=== PATIENT | female | born 1975 | race Caucasian/White ===

== ENCOUNTER 2022-12-14 13:57 | Outpatient (AMB) | payer OTHER, SELFPAY ==
[2022-12-14 13:59] VITALS: BP 122/80; PULSE 88; O2SAT 99; BMI 26.8
--- NOTE | 2022-12-14 13:59 | MHC.PC.OV ---
Vital Signs 12/14/22 13:59 Height 5 ft 6 in Weight 166 lb BMI 26.8 BP 122/80 Blood Pressure Location Lt brachial Position Sitting Pulse 88 Pulse Source Pulse Oximeter Temp Source Skin Pulse Oximetry (%) 99 Oxygen Delivery Method Room Air Intake Visit Reasons: Annual Exam Intake Note: Patient is here today for a physical. Hide Dropper Required: No Allergies No Known Allergies Allergy (Verified 12/14/22 14:08) Medication List - Last Reconciled 12/14/22 by CAROLINE Dill No Known Home Meds Tobacco use date assessed: 12/14/22 Dental Screening Dental Screen Date: 12/14/22 Did you have a dental visit in the last 12 months?: Yes Did you have a dental problem in the last 6 months where you did not have access to dental care?: No Was dental information given to patient?: Patient has dentist HPI Annual Exam HPI Details Patient is a 47-year-old female who presents today for physical exam. Patient of Dr. Perez. Medical history significant for hypertriglyceridemia. Today we discussed patient's need for cervical cancer screening, colon cancer screening, mammogram, and routine blood work. Patient reports that she possibly going through perimenopause, reports intermittent hot flashes, reports last menstruation last month although she did not have menstruation for couple months in the past. No shortness of breath or chest pain. Up-to-date with eye and dental exams. Up-to-date with tetanus vaccine. [facility] Medical History Asthma Hepatitis B Hypertriglyceridemia Obesity (BMI 30-39.9) Sacral fracture Vitamin D deficiency Surgical History No pertinent past surgical history Family History Father ALS (amyotrophic lateral sclerosis) Alcohol abuse Mother No problems noted. Maternal Grandmother Breast cancer Maternal Grandfather S/P CABG x 1 Paternal Grandmother Colon cancer Maternal Aunt Skin cancer Sister No problems noted. Sister No problems noted. Social History Housing: House Alcohol intake: current Patient Tobacco Use Status: Former Tobacco user Tobacco use type: Cigarette Years Smoked: quit 2011 e-Cigarette/Vaping Use: Never Used Second Hand Smoke Exposure: No Current occupational status: employed Cognitive needs: No Hearing needs: No Vision needs: No Questionnaire PHQ-9 Over the last 2 weeks, how often have you been bothered by any of the following problems? 1. Little interest or pleasure in doing things: not at all 2. Feeling down, depressed, or hopeless: not at all 3. Trouble falling or staying asleep, or sleeping too much: not at all 4. Feeling tired or having little energy: not at all 5. Poor appetite or overeating: not at all 6. Feeling bad about yourself - or that you are a failure or have let yourself or your family down: not at all 7. Trouble concentrating on things, such as reading the newspaper or watching television: not at all 8. Moving or speaking so slowly that other people could have noticed. Or the opposite - being so fidgety or restless that you have been moving around a lot more than usual: not at all 9. Thoughts that you would be better off or of hurting yourself in some way: not at all Total score: 0 Depression Screening Interpretation: Negative 28444 - PHQ-9 Billing: Yes Source: Developed by Drs. Ralph Gonsalves, Jenna Samuel, Jb Alex and colleagues, with an educational elbert from [email or web address] Thrive Questionnaire Date Thrive assessed: 12/14/22 I am a: Patient What is your living situation today?: I have a steady place to live Within the past 12 months, did the food you bought not last and you didn't have the money to get more?: Never true Within the past 12 months, did you worry whether your food would run out before you got money to buy more?: Never true Do you have trouble paying for medicines?: No Do you have trouble getting transportation to medical appointments?: No Do you have trouble paying your heating and electricity bill?: No Do you have trouble taking care of your child, family member or friend?: No Do you have trouble with day-to-day activities such as bathing, preparing meals, shopping, managing finances, etc.?: No Are you currently unemployed and looking for a job?: No Are you interested in more education?: No Currently or been in a relationship where the following occur: no concerns reported AUDIT C Alcohol Use Questionnaire (AUDIT-C) 1. How often do you have a drink containing alcohol?: 2-3 times a week 2. How many drinks containing alcohol do you have on a typical day when you are drinking?: 1 or 2 3. How often do you have six or more drinks on one occasion?: Never Total Score: 3 Score Reviewed/Action Taken: No VINOD-7 AMB Questionnaire VINOD-7 Date VINOD - 7 assessed: 12/14/22 Feeling nervous, anxious, or on edge: 0 = Not at all Not being able to stop or control worryin = Not at all Worrying too much about different things: 0 = Not at all Trouble relaxin = Not at all Being so restless that it is hard to sit still: 0 = Not at all Becoming easily annoyed or irritable: 0 = Not at all Feeling afraid as if something awful might happen: 0 = Not at all Total VINOD-7 score (0-4 normal; 5-9 mild; 10-14 moderate; 15-21 severe): 0 Source: Developed by Drs. Ralph Gonsalves, Jenna Samuel, Jb Alex and colleagues, with an educational elbert from [email or web address] VINOD-7 Assessment Billing VINOD-7 Assessment Tool: VINOD-7 Assessment 81815 Review of Systems Const Denies body aches, Denies chills, Denies fever(s) and Denies headache(s) Eyes Denies change in vision ENT Denies dizziness, Denies otalgia, Denies headache(s), Denies nasal discharge, Denies sinus pain and Denies sore throat Card Denies chest pain, Denies edema, Denies lightheadedness and Denies dyspnea Resp Denies cough, Denies dyspnea and Denies wheezing GI Denies abdominal pain, Denies constipation, Denies diarrhea, Denies nausea and Denies vomiting Denies dysuria Musc Denies myalgias Skin/Breast Denies rash Neuro Denies dizziness and Denies headache(s) Aller/Immun Denies wheezing Physical exam (Primary Care) Vital Signs: Last Vital Signs Pulse 88 12/14/22 13:59 BP 122/80 12/14/22 13:59 Pulse Ox 99 12/14/22 13:59 Oxygen Delivery Method Room Air 12/14/22 13:59 BMI result Body Mass Index 26.8 Tobacco/Smoking Status: Tobacco use Status Tobacco use date assessed 12/14/22 12/14/22 14:06 Patient Tobacco Use Status Former Tobacco user 12/14/22 14:06 Tobacco use type Cigarette 12/14/22 14:06 e-Cigarette/Vaping Use Never Used 12/14/22 14:06 PHQ-9: PHQ-9 Score PHQ-9: Total score 0 12/14/22 14:06 Depression Screening Interpretation: Negative Thrive Assessment: Date of Thrive Assessment Date Thrive assessed 12/14/22 12/14/22 14:06 Currently or been in a relationship where the following occur: no concerns reported Const General: cooperative and no acute distress Orientation/consciousness: patient oriented x3 HENMT Head: Yes normocephalic and Yes atraumatic Ears: TM's normal bilaterally Face and sinus: Yes sinuses nontender Mouth: oropharynx normal and moist mucous membranes Throat: Yes posterior oropharynx normal Eyes General: appearance normal, both eyes and all related structures Pupils: Equal, round and reactive pupils present EOM: EOMs intact bilaterally Neck Neck: Yes normal visual inspection, Yes full ROM and Yes no lymphadenopathy Thyroid: Thyroid normal Resp Effort & Inspection: normal respiratory effort and able to speak in complete sentences Auscultation: clear to auscultation bilaterally, no crackles, no rales, no rhonchi and no wheezes Cardio Rate: regular rate Rhythm: regular rhythm Heart sounds: S1 normal heart sound present, S2 normal heart sound present and no murmurs GI Palpation (GI): Soft to palpation, not firm, nontender, no guarding, not rigid and no hepatosplenomegaly Auscultation: normal bowel sounds General: No CVA tenderness Back/Spine/Pelvis Back: No CVA tenderness Skin General skin exam: no rashes or lesions noted Neuro General: patient oriented x3 Cranial nerves: Yes Equal, round and reactive pupils present Gait exam (Neuro): Normal gait present Extrem General: Yes full ROM and No edema Assessment and Plan Assessment & Plan (1) Breast cancer screening by mammogram: Code(s): Z12.31 - Encounter for screening mammogram for malignant neoplasm of breast (2) Cervical cancer screening: Code(s): Z12.4 - Encounter for screening for malignant neoplasm of cervix (3) Annual physical exam: Code(s): Z00.00 - Encounter for general adult medical examination without abnormal findings Plan: Repeat in 1 year Blood work ordered (4) Hypertriglyceridemia: Code(s): E78.1 - Pure hyperglyceridemia Plan: Will check lipid panel (5) Screening for colon cancer: Code(s): Z12.11 - Encounter for screening for malignant neoplasm of colon Orders: Orders Vitamin B12 and Folate Today Z00.00 - Encounter for general adult medical examination without abnormal findings Comprehensive [place]. Panel Fast Today Z00.00 - Encounter for general adult medical examination without abnormal findings Lipid Panel Today E78.1 - Pure hyperglyceridemia TSH reflex Free T4 Today Z00.00 - Encounter for general adult medical examination without abnormal findings Vitamin D 25-OH Total Today Z00.00 - Encounter for general adult medical examination without abnormal findings Complete Blood Count Auto Diff Today Z00.00 - Encounter for general adult medical examination without abnormal findings MM tomosynthesis screening BI Today Z12.31 - Encounter for screening mammogram for malignant neoplasm of breast Referrals AFFILIATE MANAGER Referral Z12.4 - Encounter for screening for malignant neoplasm of cervix Open Access Screening Colonoscopy Referral Z12.11 - Encounter for screening for malignant neoplasm of colon, Z12.12 - Encounter for screening for malignant neoplasm of rectum Coding Level of Care Code Est Pt Prev Care 40-64y(56061) Diagnoses Breast cancer screening by mammogram Z12.31 Cervical cancer screening Z12.4 Annual physical exam Z00.00 Hypertriglyceridemia E78.1 Screening for colon cancer Z12.11 Additional Codes VINOD-7 Assessment Billing - VINOD-7 Assessment Tool: VINOD-7 Assessment 35116 ([id number])
== END 2022-12-14 14:23 | disposition home or self-care (01) ==
PROVIDERS: PCP Internal Medicine; Visit Provider Nurse Practitioner Family
DX: Z12.31 Encounter for screening mammogram for malignant neoplasm of breast (principal); Z12.4 Encounter for screening for malignant neoplasm of cervix; Z00.00 Encounter for general adult medical examination without abnormal findings; E78.1 Pure hyperglyceridemia; Z12.11 Encounter for screening for malignant neoplasm of colon
CPT/HCPCS: 99396

== ENCOUNTER 2023-01-30 08:19 | Outpatient (REF) | payer OTHER, SELFPAY ==
--- NOTE | ~2023-01-30 | MM_ITS ---
EXAMINATION: MM SCREENING DIGITAL BREAST TOMOSYNTHESIS, BILATERAL CLINICAL INFORMATION: Screening. Asymptomatic. COMPARISON: Mammography: This study is compared with prior exams dating back to 2018. There are no interval examinations. TECHNIQUE: Digital breast tomosynthesis is performed in both the craniocaudal and mediolateral oblique views along with computer-aided detection (CAD). Synthesized 2D images are generated from the tomosynthesis. FINDINGS: There are scattered areas of fibroglandular density (ACR BI-RADS breast composition Category b). There are no significant masses, abnormal calcifications, or other abnormalities. MM/MM tomosynthesis screening BI IMPRESSION: No mammographic evidence of malignancy. ASSESSMENT: BI-RADS BI-RADS 1 - Negative RECOMMENDATION: Routine annual mammography screening. 1 year F/U This examination should not preclude the clinical evaluation of a suspicious palpable abnormality. This patient's information was entered into a reminder system with a target due date for their next mammogram.
== END 2023-01-30 08:20 | disposition home or self-care (01) ==
LOC: HO.MAMMO 08:19
PROVIDERS: PCP Internal Medicine; Visit Provider Nurse Practitioner Family
DX: Z12.31 Encounter for screening mammogram for malignant neoplasm of breast (principal)
CPT/HCPCS: 77063; 77067

== ENCOUNTER → 2023-01-30 08:30 | Outpatient (BNV) | payer OTHER, SELFPAY | PROVIDERS: PCP Internal Medicine; Visit Provider Radiology Diagnostic Radiology | DX: Z12.31 Encounter for screening mammogram for malignant neoplasm of breast (principal) | CPT/HCPCS: 77063; 77067 ==

== ENCOUNTER 2023-02-07 10:54 | Outpatient (AMB) | payer OTHER, SELFPAY ==
[2023-02-07 10:58] VITALS: BP 149/92; PULSE 88; BMI 26.8
--- NOTE | 2023-02-07 10:58 | MHC.OFFVIS ---
Intake Vital Signs 02/07/23 10:58 Height 5 ft 6 in Weight 166 lb 0.129 oz BMI 26.8 BP 149/92 H Blood Pressure Location Lt brachial Position Sitting Pulse 88 Pulse Source Pulse Oximeter Intake Visit Reasons: Colonoscopy Screening Allergies No Known Allergies Allergy (Verified 02/07/23 11:00) HPI Colonoscopy Screening HPI Details 48 year old? female here today for pre colonoscopy screening.? Patient was sent to us by her PCP.? This is her first colonoscopy screening.? Patient denies any gastrointestinal symptoms in the past or at present.? Patient believes that her paternal grandmother had colorectal cancer and had surgery.? Denies history of difficulty with sedation or anesthesia in the past.? Negative for history of sleep apnea.? Denies any history of cardiac, renal, pulmonary, or hepatic disease.?? No history of infectious? diseases like hepatitis A, B, C, HIV or tuberculosis.? Patient is not on any anticoagulation therapy. [facility] Medical History Asthma Hepatitis B Hypertriglyceridemia Obesity (BMI 30-39.9) Sacral fracture Vitamin D deficiency Surgical History No pertinent past surgical history Family History Father ALS (amyotrophic lateral sclerosis) Alcohol abuse Mother No problems noted. Maternal Grandmother Breast cancer Maternal Grandfather S/P CABG x 1 Paternal Grandmother Colon cancer Maternal Aunt Skin cancer Sister No problems noted. Sister No problems noted. Social History Housing: House Alcohol intake: current Patient Tobacco Use Status: Former Tobacco user Tobacco use type: Cigarette Years Smoked: quit 2011 e-Cigarette/Vaping Use: Never Used Second Hand Smoke Exposure: No Current occupational status: employed Cognitive needs: No Hearing needs: No Vision needs: No Review of Systems Const Denies weight gain and Denies weight loss ENT Reports no additional complaints, Denies dysphagia and Denies odynophagia Card Reports no additional complaints Resp Reports no additional complaints GI Denies abdominal pain, Denies belching, Denies melena, Denies bloating, Denies change in bowel habits, Denies dysphagia, Denies excessive flatus, Denies dyspepsia, Denies heartburn, Denies diarrhea, Denies loose stools, Denies nausea, Denies odynophagia and Denies vomiting Musc Reports no additional complaints Neuro Reports no additional complaints Psych Reports no additional complaints Endo Reports no additional complaints Physical Exam Vital Signs: BMI result Body Mass Index 26.8 Const General: healthy appearing, no acute distress and well developed Nutritional Appearance: well nourished Orientation/consciousness: patient oriented x3 HEENT Head: Yes normal to inspection, Yes normocephalic and Yes atraumatic Face and sinus: Yes normal facial exam Mouth: Normal oral and palatal mucosa present Throat: Yes posterior oropharynx normal, Yes tonsils normal and Yes uvula midline Eyes General: appearance normal, both eyes and all related structures Neck Neck: Yes normal visual inspection, Yes full ROM and Yes trachea midline Thyroid: Thyroid normal Resp Effort & Inspection: normal respiratory effort, able to speak in complete sentences, no tracheal deviation and symmetric chest movement Auscultation: clear to auscultation bilaterally Cardio Rate: regular rate Heart sounds: S1 normal heart sound present and S2 normal heart sound present GI Inspection: Yes normal to inspection and No distended Palpation (GI): Soft to palpation, not firm, nontender and No hepatosplenomegaly present Auscultation: normal bowel sounds General: Yes no CVA tenderness Back/Spine/Pelvis Back: no CVA tenderness Skin General skin exam: elasticity normal, turgor normal and dry skin Neuro General: patient oriented x3 Psych Appearance: grossly normal Mental Status: mental status grossly normal Speech and movement: Normal speech and movement present Assessment & Plan Assessment & Plan (1) Screening for colon cancer: Code(s): Z12.11 - Encounter for screening for malignant neoplasm of colon Plan: Patient denies any GI, cardiac or respiratory symptoms.? Denies any issues with anesthesia in the past.? Denies any history of sleep apnea.? No history infectious diseases in the past or present.? Not on any anticoagulation therapy.? No family or personal history of colon cancer or polyps.? Patient denies melena, hematochezia, unintentional weight loss or ribbon like stools.? Discussed at length the pre-procedure,? prep, diet & medications as well as what to expect prior, during and after the procedure.?? Stressed the importance of good bowel prep. ?Recommended the use of Vaseline or Calmoseptine OTC & baby wipes with bowel movements to promote comfort.? ?Patient verbalizes understanding and agrees to plan of care.? She was given the opportunity to ask questions and all questions answered.? We will see her after the procedure.? Medications: New bisacodyl (Dulcolax (bisacodyl)) take 2 tabs at noon the day before your colonoscopy 10 mg (2 x 5 mg) PO ONCE 1 day 2 tabs 0RF Z12.11 - Encounter for screening for malignant neoplasm of colon polyethylene glycol 3350 (Miralax) As directed by gastro[facility]ology [facility] at [facility] 238 grams PO ONCE 238 grams 0RF Z12.11 - Encounter for screening for malignant neoplasm of colon Coding Level of Care Code New Pt Level 3 (90484) Diagnoses Screening for colon cancer Z12.11 Time Spent (min) 40 Comment 30 minutes spent with patient on additional 10 minutes spent reviewing her records
== END 2023-02-07 12:27 | disposition home or self-care (01) ==
PROVIDERS: PCP Internal Medicine; Visit Provider Nurse Practitioner Family
DX: Z01.818 Encounter for other preprocedural examination (principal); Z12.11 Encounter for screening for malignant neoplasm of colon
CPT/HCPCS: S0285

== ENCOUNTER → 2023-02-07 10:54 | Outpatient (BNVA) | payer OTHER, SELFPAY | PROVIDERS: PCP Internal Medicine; Visit Provider Nurse Practitioner Family ==

== ENCOUNTER 2023-03-20 09:27 | Outpatient (AMB) | payer OTHER, SELFPAY ==
--- NOTE | 2023-03-20 09:34 | A.OFFVIS_ITS ---
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 Complaining of irregular menstrual cycle over the last few months Last Pap/HPV was negative in 01/13 Last Mammogram was BI-RADS 1 in 02/19 No previous screening Colonoscopy, the patient was referred to open access colonoscopy by her PCP [facility] Medical History Sacral fracture Asthma Hepatitis B Vitamin D deficiency Obesity (BMI 30-39.9) Hypertriglyceridemia Surgical History No pertinent past surgical history Family History Father ALS (amyotrophic lateral sclerosis) Alcohol abuse Mother No problems noted. Maternal Grandmother Breast cancer Maternal Grandfather S/P CABG x 1 Paternal Grandmother Colon cancer Maternal Aunt Skin cancer Sister No problems noted. Sister No problems noted. Housing: House Alcohol intake: current Patient Tobacco Use Status: Former Tobacco user Tobacco use type: Cigarette Years Smoked: quit 2011 e-Cigarette/Vaping Use: Never Used Second Hand Smoke Exposure: No Current occupational status: employed Cognitive needs: No Hearing needs: No Vision needs: No Female Reproductive History Menstrual Date of last pap smear: 01/24/16 Date of Mammogram: 01/30/23 Review of Systems Const All systems reviewed & are unremarkable except as noted in HPI and below Card Reports as per HPI Resp Reports as per HPI GI Reports as per HPI and Reports no additional complaints Reports as per HPI Physical Exam Vital Signs: Last Vital Signs BP 140/92 H 03/20/23 09:35 BMI result Body Mass Index 26.7 Const General: cooperative, healthy appearing and comfortable Chest Chest palpation & inspection: normal inspection of the chest and normal palpation of entire chest wall Breast/axilla inspection: normal inspection of the breasts and normal inspection of the axillae Breast/axilla palpation: normal palpation of the breasts, normal palpation of the axillae and no axillary lymphadenopathy Resp Effort & Inspection: normal respiratory effort Auscultation: clear to auscultation bilaterally Percussion: percussion normal Cardio Palpation: normal PMI Rate: regular rate Rhythm: regular rhythm Heart sounds: no murmurs and no rubs Peripheral pulses: Peripheral pulses 2+ throughout GI Inspection: Yes normal to inspection Palpation (GI): Soft to palpation, nontender, no guarding, not rigid and No hepatosplenomegaly present Percussion: Yes normal to percussion Auscultation: normal bowel sounds Rectal Exam - Female: deferred General: Yes bladder normal to palpation External Female Exam: No lesion Speculum Exam - Vagina: normal appearance of the vagina, normal palpation, normal vaginal discharge and not erythematous Speculum Exam - Cervix: normal appearance of the cervix and normal palpation Bimanual exam- vagina & uterus: normal bimanual exam, normal palpation, uterine size normal, bladder normal to palpation, consistency normal and normal palpation Bimanual Exam- Adnexa, other: normal adnexae, no masses and no tenderness Assessment & Plan Assessment & Plan (1) Well woman exam: Code(s): Z01.419 - Encounter for gynecological examination (general) (routine) without abnormal findings Plan: Cotesting done. Instructions given the patient to schedule her next screening Mammogram in 02/20. Counseled the patient about the recommended dietary allowance of 1000 mg of Calcium & 600 IU of vitamin D. The patient was instructed to perform monthly self-breast exams and to schedule an annual exam in a year; All questions answered and the patient verbalized understanding. Instructed the patient to schedule annual exam in a year (2) Abnormal uterine bleeding: Code(s): N93.9 - Abnormal uterine and vaginal bleeding, unspecified Plan: Co testing done, GC and chlamydia taken CBC, TSH, prolactin, FSH/LH, HCG, and pelvic ultrasound ordered. Discussed with the patient the different causes of abnormal bleeding including thyroid disorders, uterine and ovarian pathology, endometrial hyperplasia, carcinoma and other potential causes. Discussed with the patient the work up including CBC (to r/o anemia), TSH, pelvic Ultrasound, endometrial biopsy to r/o endometrial pathology. All questions answered and the patient verbalized understanding. Instructed the patient to schedule an appointment for an endometrial biopsy in 2 weeks. Orders: Orders TSH reflex Free T4 Today N93.9 - Abnormal uterine and vaginal bleeding, unspecified Complete Blood Count no Diff Today N93.9 - Abnormal uterine and vaginal bleeding, unspecified HCG Quantitative Today N93.9 - Abnormal uterine and vaginal bleeding, unspecified Lutenizing Hormone Today N93.9 - Abnormal uterine and vaginal bleeding, unspeci fied Follicle Stimulating Hormone Today N93.9 - Abnormal uterine and vaginal bleeding, unspecified Prolactin Today N93.9 - Abnormal uterine and vaginal bleeding, unspecified US pelvic and transvaginal Today N93.9 - Abnormal uterine and vaginal bleeding, unspecified Coding Level of Care Code New Pt Prev Care 40-64y(07047) Diagnoses Well woman exam Z01.419 Abnormal uterine bleeding N93.9
[2023-03-20 09:35] VITALS: BP 140/92; BMI 26.7
== END 2023-03-20 09:58 | disposition home or self-care (01) ==
PROVIDERS: PCP Internal Medicine; Visit Provider Obstetrics & Gynecology
DX: Z01.419 Encounter for gynecological examination (general) (routine) without abnormal findings (principal); N93.9 Abnormal uterine and vaginal bleeding, unspecified
CPT/HCPCS: 99386

== ENCOUNTER 2023-03-20 09:27 | Outpatient (REF) | payer OTHER, SELFPAY ==
[2023-03-20 18:24] LABS: CT PCR NOT DETECTED (Not Detect.); NG PCR NOT DETECTED (Not Detect.)
[2023-03-23 08:53] LABS: HPV mRNA E6/E7 rflx Not Detected (Not Detected)
== END 2023-03-20 09:28 | disposition home or self-care (01) ==
LOC: HO.LNP 09:27
PROVIDERS: PCP Internal Medicine; Visit Provider Obstetrics & Gynecology
DX: Z01.419 Encounter for gynecological examination (general) (routine) without abnormal findings (principal); Z11.51 Encounter for screening for human papillomavirus (HPV); N93.9 Abnormal uterine and vaginal bleeding, unspecified; Z20.2 Contact with and (suspected) exposure to infections with a predominantly sexual mode of transmission
CPT/HCPCS: 0353U; 87624; 88142

== ENCOUNTER 2023-12-17 10:08 | Outpatient (AMB) | payer BC, SELFPAY ==
[2023-12-17 10:10] VITALS: BP 126/100; PULSE 78; O2SAT 99; BMI 26.5
--- NOTE | 2023-12-17 10:10 | MHC.PC.OV ---
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 Accompanied by: Self / Same As Patient Allergies No Known Allergies Allergy (Verified 12/17/23 10:11) Medication List - Last Reconciled 12/17/23 by Jamel Perez MD [AG1 (probiotics) powder] bisacodyl (Dulcolax (bisacodyl)) 10 mg (2 x 5 mg) PO ONCE 1 day polyethylene glycol 3350 (Miralax) 238 grams PO ONCE Tobacco use date assessed: 12/17/23 Dental Screening Dental Screen Date: 12/17/23 Did you have a dental visit in the last 12 months?: Yes Did you have a dental problem in the last 6 months where you did not have access to dental care?: No Was dental information given to patient?: Patient has dentist HPI Annual Exam HPI Details 48-year-old female with hypercholesterolemia coming in for physical exam. Patient was last seen in 2022. Review of the notes in 02/16/2023 has met with Gastroenterology. colon soon, perimnopausal. has anxiety [facility] Medical History Sacral fracture Asthma Hepatitis B Vitamin D deficiency Obesity (BMI 30-39.9) Hypertriglyceridemia Surgical History No pertinent past surgical history Family History (Updated 12/17/23 @ 10:33 by Jamel Perez MD) Father ALS (amyotrophic lateral sclerosis) Alcohol abuse Mother No problems noted. Maternal Grandmother Breast cancer Maternal Grandfather S/P CABG x 1 Paternal Grandmother Bladder cancer Maternal Aunt Skin cancer Sister No problems noted. Sister No problems noted. Other Colon cancer Social History (Updated 12/17/23 @ 10:36 by Jamel Perez MD) Housing: House Alcohol intake: current Comment: 2 days weekend-2-3 drinks Patient Tobacco Use Status: Former Tobacco user Tobacco use type: Cigarette Years Smoked: quit 2011 e-Cigarette/Vaping Use: Never Used Second Hand Smoke Exposure: No service: No Current occupational status: employed Current occupational exposures/hazards: No Cognitive needs: No Hearing needs: No Vision needs: No Questionnaire PHQ-9 Over the last 2 weeks, how often have you been bothered by any of the following problems? 1. Little interest or pleasure in doing things: not at all 2. Feeling down, depressed, or hopeless: not at all 3. Trouble falling or staying asleep, or sleeping too much: not at all 4. Feeling tired or having little energy: not at all 5. Poor appetite or overeating: not at all 6. Feeling bad about yourself - or that you are a failure or have let yourself or your family down: not at all 7. Trouble concentrating on things, such as reading the newspaper or watching television: not at all 8. Moving or speaking so slowly that other people could have noticed. Or the opposite - being so fidgety or restless that you have been moving around a lot more than usual: not at all 9. Thoughts that you would be better off or of hurting yourself in some way: not at all Total score: 0 Depression Screening Interpretation: Negative Depression Screening Done: Yes 15289 - PHQ-9 Billing: Yes Source: Developed by Drs. Ralph Gonsalves, Jenna Samuel, Jb Alex and colleagues, with an educational elbert from [employer]. Thrive Questionnaire Date Thrive assessed: 12/17/23 I am a: Patient What is your living situation today?: I have a steady place to live Within the past 12 months, did the food you bought not last and you didn't have the money to get more?: Never true Within the past 12 months, did you worry whether your food would run out before you got money to buy more?: Never true Do you have trouble paying for medicines?: No Do you have trouble getting transportation to medical appointments?: No Do you have trouble paying your heating and electricity bill?: No Do you have trouble taking care of your child, family member or friend?: No Do you have trouble with day-to-day activities such as bathing, preparing meals, shopping, managing finances, etc.?: No Are you currently unemployed and looking for a job?: No Are you interested in more education?: No Please select the resources that you would like help with: None Currently or been in a relationship where the following occur: No concerns reported THRIVE Score: 0 AUDIT C Alcohol Use Questionnaire (AUDIT-C) 1. How often do you have a drink containing alcohol?: 2-3 times a week 2. How many drinks containing alcohol do you have on a typical day when you are drinking?: 1 or 2 3. How often do you have six or more drinks on one occasion?: Never Total Score: 3 Score Reviewed/Action Taken: No VINOD-7 AMB Questionnaire VINOD-7 Date VINOD - 7 assessed: 12/17/23 Feeling nervous, anxious, or on edge: 0 = Not at all Not being able to stop or control worryin = Not at all Worrying too much about different things: 0 = Not at all Trouble relaxin = Not at all Being so restless that it is hard to sit still: 0 = Not at all Becoming easily annoyed or irritable: 0 = Not at all Feeling afraid as if something awful might happen: 0 = Not at all Total VINOD-7 score (0-4 normal; 5-9 mild; 10-14 moderate; 15-21 severe): 0 Source: Developed by Drs. Ralph Gonsalves, Jenna Samuel, Jb Alex and colleagues, with an educational elbert from [employer]. VINOD-7 Assessment Billing VINOD-7 Assessment Tool: VINOD-7 Assessment 92705 Review of Systems Const Denies poor appetite and Denies weakness Eyes Denies no additional complaints ENT Reports Normal hearing present, Denies dizziness, Denies nasal congestion, Denies tinnitus and Denies sore throat Card Denies chest pain, Denies syncope, Denies rapid heart rate and Denies dyspnea Resp Denies cough and Denies dyspnea GI Denies change in stool character, Reports constipation, Denies diarrhea, Denies nausea and Denies vomiting Denies urinary frequency, Denies difficulty voiding and Denies dysuria Neuro Reports Normal hearing present, Denies confusion, Denies dizziness, Denies syncope and Denies weakness Psych Denies confusion Physical exam (Primary Care) Vital Signs: Last Vital Signs Pulse 78 12/17/23 10:10 BP 126/100 H 12/17/23 10:10 Pulse Ox 99 12/17/23 10:10 Oxygen Delivery Method Room Air 12/17/23 10:10 BMI result Body Mass Index 26.5 Tobacco/Smoking Status: Tobacco use Status Tobacco use date assessed 12/17/23 12/17/23 10:15 Patient Tobacco Use Status Former Tobacco user 12/17/23 10:15 Tobacco use type Cigarette 12/17/23 10:15 e-Cigarette/Vaping Use Never Used 12/17/23 10:15 PHQ-9: PHQ-9 Score PHQ-9: Total score 0 12/17/23 10:17 Depression Screening Interpretation: Negative Thrive Assessment: Date of Thrive Assessment Date Thrive assessed 12/17/23 12/17/23 10:15 Currently or been in a relationship where the following occur: No concerns reported Const General: No confusion Orientation/consciousness: No confusion HENMT Head: Yes normocephalic Ears: external ears normal and TM's normal bilaterally Face and sinus: Yes normal facial exam Mouth: moist mucous membranes Throat: Yes tonsils normal Eyes Conjunctivae: conjunctivae normal Pupils: Equal, round and reactive pupils present and Pupil accommodation reflex normal Direct Ophthalmoscopy: normal light reflex Neck Neck: No lymphadenopathy Thyroid: Thyroid normal Chest Chest palpation & inspection: normal inspection of the chest Resp Effort & Inspection: normal respiratory effort and no audible wheezes Auscultation: clear to auscultation bilaterally, no crackles, no wheezes and lung sounds not diminished Cardio Rate: regular rate Rhythm: regular rhythm Peripheral pulses: radial pulses present and dorsalis pedis present GI Palpation (GI): no masses Auscultation: normal bowel sounds and normoactive bowel sounds Rectal Exam - Female: deferred Skin General skin exam: no rashes or lesions noted Rashes: no rashes Neuro General: No confusion Cranial nerves: Yes Equal, round and reactive pupils present and Yes Normal hearing present Cognition (Neuro): normal cognition Gait exam (Neuro): Normal gait present Motor exam (neuro): 5/5 motor strength present throughout Deep tendon reflexes (DTR's): Right brachioradialis reflex intensity grade: 2+, Left brachioradialis reflex intensity grade: 2+, Right patellar reflex intensity grade: 2+ and Left patellar reflex intensity grade: 2+ Extrem General: No edema Assessment and Plan Assessment & Plan (1) Annual physical exam: Code(s): Z00.00 - Encounter for general adult medical examination without abnormal findings Plan: Patient is advised to eat healthy, keep well hydrated, keep active and have adequate sleep. (2) Screening for colon cancer: Code(s): Z12.11 - Encounter for screening for malignant neoplasm of colon Plan: Patient has met with a jewel bearing driller last year and reminded about colonoscopy. (3) Hypertriglyceridemia: Code(s): E78.1 - Pure hyperglyceridemia Plan: Avoid fried foods, chicken skin, eggs, butter margarine, pastries and meat. Be it pork or beef they have a lot of cholesterol advised request for blood work (4) Hypertension: Code(s): I10 - Essential (primary) hypertension Orders: Orders Thyroid Stimulating Hormone Today E78.1 - Pure hyperglyceridemia Complete Blood Count Auto Diff Today E78.1 - Pure hyperglyceridemia Comprehensive Met. Panel Today E78.1 - Pure hyperglyceridemia Free T4 (Free Thyroxine) Today E78.1 - Pure hyperglyceridemia Lipid Panel Today E78.00 - Pure hypercholesterolemia, unspecified, E78.1 - Pure hyperglyceridemia Vitamin B12 and Folate Today E78.1 - Pure hyperglyceridemia Vitamin D 25-OH Total Today E78.1 - Pure hyperglyceridemia Medications: New hydrochlorothiazide 12.5 mg PO DAILY 30 tabs 3RF I10 - Essential (primary) hypertension Coding Level of Care Code Est Pt Prev Care 40-64y(20436) Diagnoses Annual physical exam Z00.00 Screening for colon cancer Z12.11 Hypertriglyceridemia E78.1 Hypertension I10 Additional Codes VINOD-7 Assessment Billing - VINOD-7 Assessment Tool: VINOD-7 Assessment [id number] ([id number])
== END 2023-12-17 10:49 | disposition home or self-care (01) ==
PROVIDERS: PCP Internal Medicine; Visit Provider Internal Medicine
DX: Z00.00 Encounter for general adult medical examination without abnormal findings (principal); Z12.11 Encounter for screening for malignant neoplasm of colon; E78.1 Pure hyperglyceridemia; I10 Essential (primary) hypertension
CPT/HCPCS: 99396

== ENCOUNTER 2024-01-04 08:24 | Day surgery (SDC) | payer BC, SELFPAY ==
--- NOTE | 2024-01-03 09:07 | P.CONAN_ITS ---
HPI - Anesthesia Eval Consult details Narrative: 48yo F for Colonoscopy PMFSH Active Problems Active Problems: All Active Problems Hypertension (Acute) Blood pressure elevated without history of HTN (Acute) Annual physical exam (Acute) Abnormal uterine bleeding (Acute) Well woman exam (Acute) Screening for colon cancer (Acute) Atypical nevi (Acute) Vision changes (Acute) Breast cancer screening by mammogram (Acute) Cervical cancer screening (Acute) Vitamin D deficiency (Acute) Annual physical exam (Acute) Obesity (BMI 30-39.9) (Acute) Hypertriglyceridemia (Acute) Past Medical History Medical History Sacral fracture Asthma Hepatitis B Vitamin D deficiency Obesity (BMI 30-39.9) Hypertriglyceridemia Family History Family History (Updated 12/17/23 @ 10:33 by Jamel Perez MD) Father ALS (amyotrophic lateral sclerosis) Alcohol abuse Mother No problems noted. Maternal Grandmother Breast cancer Maternal Grandfather S/P CABG x 1 Paternal Grandmother Bladder cancer Maternal Aunt Skin cancer Sister No problems noted. Sister No problems noted. Other Colon cancer Surgical History Surgical History (Updated 01/04/24 @ 08:52 by Rosemarie Leblanc RN) Hx of wisdom tooth extraction Social History Social History (Updated 12/17/23 @ 10:36 by Jamel Perez MD) Housing: House Are you a primary director medicare sales to a significant other at home: No Do you presently have visiting nurse or other home services: No Alcohol intake: current Comment: 2 days weekend-2-3 drinks Patient Tobacco Use Status: Former Tobacco user Tobacco use type: Cigarette Years Smoked: quit 2011 e-Cigarette/Vaping Use: Never Used Second Hand Smoke Exposure: No service: No Current occupational status: employed Current occupational exposures/hazards: No Cognitive needs: No Hearing needs: No Vision needs: No Meds Allergies Allergy/AdvReac Type Severity Reaction Status Date / Time No Known Allergies Allergy Verified 01/04/24 08:52 Assessment and Plan Assessment Anesthesia Assessment: Chart Reviewed
[2024-01-04 08:37] VITALS: BMI 26.8
[2024-01-04] MEDS: Lactated Ringers 1,000 ML 100 ML IVCONT (08:42)
--- NOTE | 2024-01-04 08:48 | HO.ANESPROP2 ---
[facility] Active Problems Active Problems: All Active Problems Hypertension (Acute) Blood pressure elevated without history of HTN (Acute) Annual physical exam (Acute) Abnormal uterine bleeding (Acute) Well woman exam (Acute) Screening for colon cancer (Acute) Atypical nevi (Acute) Vision changes (Acute) Breast cancer screening by mammogram (Acute) Cervical cancer screening (Acute) Vitamin D deficiency (Acute) Annual physical exam (Acute) Obesity (BMI 30-39.9) (Acute) Hypertriglyceridemia (Acute) Past Medical History Medical History Sacral fracture Asthma Hepatitis B Vitamin D deficiency Obesity (BMI 30-39.9) Hypertriglyceridemia Family History Family History (Updated 12/17/23 @ 10:33 by Jamel Perez MD) Father ALS (amyotrophic lateral sclerosis) Alcohol abuse Mother No problems noted. Maternal Grandmother Breast cancer Maternal Grandfather S/P CABG x 1 Paternal Grandmother Bladder cancer Maternal Aunt Skin cancer Sister No problems noted. Sister No problems noted. Other Colon cancer Family history of problems with anesthesia: No Surgical History Surgical History No pertinent past surgical history History of Problems with Anesthesia: No Social History Social History (Updated 12/17/23 @ 10:36 by Jamel Perez MD) Housing: House Are you a primary healthcare account manager to a significant other at home: No Do you presently have visiting nurse or other home services: No Alcohol intake: current Comment: 2 days weekend-2-3 drinks Patient Tobacco Use Status: Former Tobacco user Tobacco use type: Cigarette Years Smoked: quit 2011 e-Cigarette/Vaping Use: Never Used Second Hand Smoke Exposure: No Have you been hit, kicked, punched, or otherwise hurt by someone within the past year? If so, by whom?: No Are you DNR?: No Advance Directives: No Advance Directives Information Provided: Yes Recently lost weight without trying: No Nutrition Risks: No Nutritional Risk FDLMP: october service: No Current occupational status: employed Current occupational exposures/hazards: No Cognitive needs: No Hearing needs: No Vision needs: No Meds Allergies Allergy/AdvReac Type Severity Reaction Status Date / Time No Known Allergies Allergy Verified 01/04/24 08:52 Active Medications: Current Medications Albuterol Sulfate (Albuterol Sulfate (0.083%) 2.5 Mg/3 Ml Vial.Neb) 2.5 mg INHALE ONCE PRN PRN Reason: Shortness of Breath/Wheezing Lactated Ringer's (Lr) 1,000 mls @ 100 mls/hr IVCONT .Q10H JOSUÉ Last Admin: 01/04/24 08:42 Dose: 100 mls/hr Exam Height,Weight and Vital Signs: Height 5 ft 6 in Weight 75.206 kg Airway Mallampati Class: II TM Dist: >3cm Neck ROM: Full Heart: rrr Lungs: cta Assessment and Plan Assessment Anesthesia Assessment: Anesthesia Plan Discussed and Chart Reviewed Final Anesthetic Review Family History of Problems with Anesthesia: No History of Problems with Anesthesia: No NPO: Yes ASA Class: II Final Preanesthetic Review: No Changes in Pt Med Stat, Meds/Allgs Chart Reviewed and Consent Obtained/Reviewed Patient Risk: Low Procedure Risk: Low Anesthetic Plan Anesthetic Plan: MAC: Disposition: Standard PACU
[2024-01-04 08:50] VITALS: BP 129/88; PULSE 80; RESP 18; TEMP 36.7; O2SAT 100
[2024-01-04 08:58] LABS: UPreg QC Valid YES; Urine Pregnancy NEGATIVE (NEGATIVE)
--- NOTE | 2024-01-04 09:05 | MHC.SHP ---
Pre-Procedural Eval Section A - 24 Hr Update-Section A only Date of Service: 01/04/24 The patient is an INPATIENT: No The patient has been examined within 24 hours of the surgical procedure. The History & Physical has been completed within 30 days and I have reviewed it.: No Section B - Complete if H&P > 30 days Chief Complaint: Encounter for screening for malignant neoplasm of Relevant Family History (Specify if Yes): Yes Relevant Social History: Tobacco Use (Former smoker) Present Medications: see Short Stay Collaborative assessment Medical History: Significant History (Asthma Hepatitis B Hypertriglyceridemia Obesity (BMI 30-39.9) Sacral fracture Vitamin D deficiency) History of Previous Operations: No relevant previous surgery Allergies: Allergies Allergy/AdvReac Type Severity Reaction Status Date / Time No Known Allergies Allergy Verified 01/04/24 08:52 Review of Systems Sugical H&P ROS: Negative: Constitution, Cardiovascular, Respiratory and Gastrointestinal Exam Surgical H&P Exam: Normal: Heart, Normal: Lungs, Normal: Extremities and Normal: Abdomen Plan Diagnosis/Plan: Unchanged I have reviewed the history and physical and performed a pertinent physical examination on my patient. No changes have occurred unless specified. Time Spent With Patient Time: Total time managing care of this patient today ____ minutes.
--- NOTE | 2024-01-04 10:24 | HO.OPN-COLON ---
Colonoscopy Operative Note Operative Note Date of Service: 01/04/24 Narrative: COLONOSCOPY TILL CECUM WITH BIOPSIES AND SNARE POLYPECTOMY Pre-op diagnosis: Colon cancer screening (first colonoscopy). Post-op diagnosis:? Colon polyps Endoscopist:? Radha Markham MD Anesthesia:?MAC Consent: Indications for the procedure and potential complications of bleeding, perforation, reaction to medications and missed diagnosis were discussed with the patient and informed consent was obtained. Instrument: Olympus PCF H 190 L variable stiffness pediatric colonoscope Monitoring: Vital signs and clinical assessment, intermittent blood pressure monitoring, continuous EKG monitoring, Pulse oximetry and Carbon Dioxide monitoring were done throughout the procedure. Please see anesthesia flowsheet. Colon withdrawl time was 16 minutes. Procedure: The patient was placed in the left lateral decubitis position and pre-procedure medications were administered. After a digital rectal examination of the ano-rectum, the video colonoscope was inserted into the rectum and advanced through the colon to the cecum. The colonoscope was slowly withdrawn in a retrograde panoramic fashion and the colon mucosa was carefully examined including a retroflexed view of the rectum. Findings and interventions are described below. Procedure Difficulty: without difficulty Findings: Terminal Ileum: Not evaluated Cecum: A 6-7 mm sessile polyp - removed with a cold snare Ascending Colon: Normal Transverse Colon: Normal Descending Colon: Normal Sigmoid Colon: A 10-12 mm sessile polyp at 25 cms - removed with a hot snare Rectum: Normal Ano-rectum: A 2 cms long hypertrophied anal papillae noted on retroflexed exam Colon preparation: Excellent, after some irrigation. [place] Bowel Preparation Scale Right colon; 3 Transverse colon: 3 Left colon; 3 (0 = Unprepared colon segment with mucosa not seen due to solid stool that cannot be cleared. 1 = Portion of mucosa of the colon segment seen, but other areas of the colon segment not well seen due to staining, residual stool and/or opaque liquid. 2 = Minor amount of residual staining, small fragments of stool and/or opaque liquid, but mucosa of colon segment seen well. 3 = Entire mucosa of colon segment seen well with no residual staining, small fragments of stool or opaque liquid) Impression and Post Procedure Diagnosis: Colonoscopy Findings: One small and one medium sized polyps were removed A 2 cms long hypertrophied anal papillae noted on retroflexed exam Plan: Pt has a FU appointment on 01/18/24 with Paris Millan NP Repeat Colonoscopy in 3-5 years if polyps are adenomatous and 10 year if polyps are hyperplastic. Above findings were reviewed with the patient and relevant handouts were given and the discharge area.
[2024-01-04 10:26] VITALS: BP 114/80; PULSE 75; RESP 16; TEMP 36.6; O2SAT 99
[2024-01-04 10:41] VITALS: BP 136/92; PULSE 71; RESP 18; TEMP 36.1; O2SAT 100
== END 2024-01-04 11:07 | disposition home or self-care (01) ==
PROVIDERS: Nurse Practitioner; PCP Internal Medicine; Visit Provider Internal Medicine Gastroenterology
PROC: 0DJD8ZZ Inspection of Lower Intestinal Tract, Via Natural or Artificial Opening Endoscopic (ICD-10-PCS; CPT 45378; principal; 2024-01-04 10:10)
DX: Z12.11 Encounter for screening for malignant neoplasm of colon (principal); D12.0 Benign neoplasm of cecum; D12.5 Benign neoplasm of sigmoid colon; K62.89 Other specified diseases of anus and rectum; E78.1 Pure hyperglyceridemia; B19.10 Unspecified viral hepatitis B without hepatic coma; J45.909 Unspecified asthma, uncomplicated; E55.9 Vitamin D deficiency, unspecified; Z87.891 Personal history of nicotine dependence
CPT/HCPCS: 45385; 81025; 88305; J2704

== ENCOUNTER → 2024-01-04 08:24 | Outpatient (BNV) | payer BC, SELFPAY | PROVIDERS: PCP Internal Medicine; Visit Provider Internal Medicine Gastroenterology | DX: Z12.11 Encounter for screening for malignant neoplasm of colon (principal); D12.0 Benign neoplasm of cecum; D12.5 Benign neoplasm of sigmoid colon | CPT/HCPCS: 45385 ==

== ENCOUNTER 2024-01-18 12:58 | Outpatient (AMB) | payer BC, SELFPAY ==
--- NOTE | 2024-01-18 13:04 | MHC.OFFVIS ---
Vital Signs 01/18/24 13:06 Height 5 ft 6 in Weight 169 lb 12.095 oz BMI 27.4 BP 141/90 H Blood Pressure Location Lt brachial Position Sitting Pulse 86 Intake Visit Reasons: S/p colon Intake Note: Lyndsay presents in the office as a follow up colonoscopy. CC: Just here for results - not having any concerns! Allergies No Known Allergies Allergy (Verified 01/18/24 13:06) HPI HPI S/p colon: Details: LAST VISIT: Screening for colon cancer Patient denies any GI, cardiac or respiratory symptoms.? Denies any issues with anesthesia in the past.? Denies any history of sleep apnea.? No history infectious diseases in the past or present.? Not on any anticoagulation therapy.? No family or personal history of colon cancer or polyps.? Patient denies melena, hematochezia, unintentional weight loss or ribbon like stools.? Discussed at length the pre-procedure,? prep, diet & medications as well as what to expect prior, during and after the procedure.?? Stressed the importance of good bowel prep. ?Recommended the use of Vaseline or Calmoseptine OTC & baby wipes with bowel movements to promote comfort.? ?Patient verbalizes understanding and agrees to plan of care.? She was given the opportunity to ask questions and all questions answered.? We will see her after the procedure.? Plan Medications New bisacodyl (Dulcolax (bisacodyl)) take 2 tabs at noon the day before your colonoscopy 10 mg (2 x 5 mg) PO ONCE 1 day 2 tabs 0RF Z12.11 polyethylene glycol 3350 (Miralax) As directed by gastroenterology department at [facility] 238 grams PO ONCE 238 grams 0RF Z12.11 COLONOSCOPY: Findings: Terminal Ileum: Not evaluated Cecum: A 6-7 mm sessile polyp - removed with a cold snare Ascending Colon: Normal Transverse Colon: Normal Descending Colon: Normal Sigmoid Colon: A 10-12 mm sessile polyp at 25 cms - removed with a hot snare Rectum: Normal Ano-rectum: A 2 cms long hypertrophied anal papillae noted on retroflexed exam Colon preparation: Excellent, after some irrigation. [place] Bowel Preparation Scale Right colon; 3 Transverse colon: 3 Left colon; 3 (0 = Unprepared colon segment with mucosa not seen due to solid stool that cannot be cleared. 1 = Portion of mucosa of the colon segment seen, but other areas of the colon segment not well seen due to staining, residual stool and/or opaque liquid. 2 = Minor amount of residual staining, small fragments of stool and/or opaque liquid, but mucosa of colon segment seen well. 3 = Entire mucosa of colon segment seen well with no residual staining, small fragments of stool or opaque liquid) Impression and Post Procedure Diagnosis: Colonoscopy Findings: One small and one medium sized polyps were removed A 2 cms long hypertrophied anal papillae noted on retroflexed exam Plan: Repeat Colonoscopy in 3-5 years if polyps are adenomatous and 10 year if polyps are hyperplastic. Above findings were reviewed with the patient and relevant handouts were given and the discharge area. PATHOLOGY RESULTS: Diagnosis A. Colon, cecal polyp: Tubular adenoma; negative for high-grade dysplasia and carcinoma. B. Colon, sigmoid, polyp: Tubular adenoma; negative for high-grade dysplasia and carcinoma TODAY'S VISIT: Patient is here today for follow-up and to discuss colonoscopy results. Patient denies any ill effects from the prep, anesthesia or procedure itself. Tubular adenoma without high-grade dysplasia found in sigmoid colon and cecum. Patient reports that she has been feeling well without any issues. Denies any dyspepsia, dysphagia or odynophagia. Denies any melena, hematochezia, unintentional weight loss or ribbon like stools. Patient reports to be feeling well [facility] Medical History (Updated 01/26/24 @ 18:33 by NAJMA Dobson) Tubular adenoma of colon Sacral fracture Asthma Hepatitis B Vitamin D deficiency Obesity (BMI 30-39.9) Hypertriglyceridemia Surgical History (Updated 01/26/24 @ 18:33 by NAJMA Dobson) Status post colonoscopy Hx of colonoscopy Hx of wisdom tooth extraction Family History Father ALS (amyotrophic lateral sclerosis) Alcohol abuse Mother No problems noted. Maternal Grandmother Breast cancer Maternal Grandfather S/P CABG x 1 Paternal Grandmother Bladder cancer Maternal Aunt Skin cancer Sister No problems noted. Sister No problems noted. Other Colon cancer Social History Housing: House Are you a primary cardiac care unit nurse to a significant other at home: No Do you presently have visiting nurse or other home services: No Alcohol intake: current Comment: 2 days weekend-2-3 drinks Patient Tobacco Use Status: Former Tobacco user Tobacco use type: Cigarette Years Smoked: quit 2011 e-Cigarette/Vaping Use: Never Used Second Hand Smoke Exposure: No service: No Current occupational status: employed Current occupational exposures/hazards: No Cognitive needs: No Hearing needs: No Vision needs: No Review of Systems Const Denies weight gain and Denies weight loss ENT Reports no additional complaints, Denies dysphagia and Denies odynophagia Card Reports no additional complaints Resp Reports no additional complaints GI Denies abdominal pain, Denies belching, Denies melena, Denies bloating, Denies change in bowel habits, Denies dysphagia, Denies excessive flatus, Denies dyspepsia, Denies heartburn, Denies diarrhea, Denies loose stools, Denies nausea, Denies odynophagia and Denies vomiting Musc Reports no additional complaints Neuro Reports no additional complaints Psych Reports no additional complaints Endo Reports no additional complaints Physical Exam Vital Signs: Last Vital Signs Pulse 86 01/18/24 13:06 BP 141/90 H 01/18/24 13:06 BMI result Body Mass Index 27.4 Const General: healthy appearing, no acute distress and well developed Nutritional Appearance: well nourished Orientation/consciousness: patient oriented x3 Resp Effort & Inspection: normal respiratory effort, able to speak in complete sentences, no tracheal deviation and symmetric chest movement Auscultation: clear to auscultation bilaterally Cardio Rate: regular rate GI Inspection: Yes normal to inspection and No distended Palpation (GI): Soft to palpation, not firm, nontender and No hepatosplenomegaly present Auscultation: normal bowel sounds General: Yes no CVA tenderness Back/Spine/Pelvis Back: no CVA tenderness Skin General skin exam: elasticity normal, turgor normal and dry skin Neuro General: patient oriented x3 Psych Appearance: grossly normal Mental Status: mental status grossly normal Assessment & Plan Assessment & Plan (1) Tubular adenoma of colon: Code(s): D12.6 - Benign neoplasm of colon, unspecified Category: Medical (2) Status post colonoscopy: Code(s): Z98.890 - Other specified postprocedural states Category: Medical Plan As mentioned above in HPI patient was found to have tubular adenoma without high-grade dysplasia or carcinoma. Patient will follow-up in 3 years, sooner if clinically necessary. Currently patient has no GI concerning symptoms. Patient will call our office if she will have any concerns. Patient is agreeable to this plan and verbalizes understanding of instructions. She was given the opportunity to ask questions and all questions answered. Thank you for allowing me to participate in her care Coding Level of Care Code Est Pt Level 3 (98563) Diagnoses Tubular adenoma of colon D12.6 Status post colonoscopy Z98.890 Time Spent (min) 25 Comment 15 minutes spent with patient and additional 10 minutes spent reviewing her records
[2024-01-18 13:06] VITALS: BP 141/90; PULSE 86; BMI 27.4
== END 2024-01-18 13:26 | disposition home or self-care (01) ==
PROVIDERS: PCP Internal Medicine; Visit Provider Nurse Practitioner Family
DX: D12.6 Benign neoplasm of colon, unspecified (principal); Z98.890 Other specified postprocedural states
CPT/HCPCS: 99213

== ENCOUNTER → 2024-01-18 12:58 | Outpatient (BNVA) | payer SELFPAY | PROVIDERS: PCP Internal Medicine; Visit Provider Nurse Practitioner Family ==

== ENCOUNTER 2024-02-01 08:44 | Outpatient (REF) | payer BC, SELFPAY ==
--- NOTE | ~2024-02-01 | MM_ITS ---
EXAMINATION: MM SCREENING DIGITAL BREAST TOMOSYNTHESIS, BILATERAL CLINICAL INFORMATION: Screening. Asymptomatic. COMPARISON: Mammography: Comparison is made with available priors TECHNIQUE: Digital breast mammography with tomosynthesis is performed in both the craniocaudal and mediolateral oblique views along with computer-aided detection (CAD). FINDINGS: There are scattered areas of fibroglandular density (ACR BI-RADS breast composition Category b). There are no significant masses, abnormal calcifications, or other abnormalities. MM/MM tomosynthesis screening BI IMPRESSION: No mammographic evidence of malignancy. ASSESSMENT: BI-RADS BI-RADS 1 - Negative RECOMMENDATION: Routine annual mammography screening. 1 year F/U This examination should not preclude the clinical evaluation of a suspicious palpable abnormality. This patient's information was entered into a reminder system with a target due date for their next mammogram. Electronically signed by: Gavi Galicia DO 02/13/2024 12:51 PM EDT
== END 2024-02-01 08:45 | disposition home or self-care (01) ==
LOC: HO.MAMMO 08:44
PROVIDERS: PCP Internal Medicine; Visit Provider Internal Medicine
DX: Z12.31 Encounter for screening mammogram for malignant neoplasm of breast (principal)
CPT/HCPCS: 77063; 77067

== ENCOUNTER → 2024-02-01 08:45 | Outpatient (BNV) | payer BC, SELFPAY | PROVIDERS: PCP Internal Medicine; Visit Provider Internal Medicine | DX: Z12.31 Encounter for screening mammogram for malignant neoplasm of breast (principal) | CPT/HCPCS: 77063; 77067 ==

== ENCOUNTER 2024-06-16 17:12 | Outpatient (AMB) | payer BC, SELFPAY ==
--- NOTE | 2024-06-16 17:21 | MHC.PC.OV ---
Vital Signs 06/16/24 17:22 Height 5 ft 6 in Weight 172 lb BMI 27.8 BP 136/80 Blood Pressure Location Lt brachial Position Sitting Pulse 76 Pulse Source Pulse Oximeter Pulse Oximetry (%) 97 Oxygen Delivery Method Room Air Intake Visit Reasons: LabsFollowUp Cost Recovery Technician Required: No Accompanied by: Self / Same As Patient Allergies No Known Allergies Allergy (Verified 06/16/24 17:26) Tobacco use date assessed: 06/16/24 Dental Screening Dental Screen Date: 06/16/24 Did you have a dental visit in the last 12 months?: Yes Did you have a dental problem in the last 6 months where you did not have access to dental care?: No Was dental information given to patient?: Patient has dentist HPI LabsFollowUp HPI Details The patient is a 49-year-old female presenting for follow-up regarding conditions. She has a history of essential hypertension and hypercholesterolemia, which are being actively managed with medication. Her blood pressure has been reported as stable, with no associated symptoms such as swelling in the legs. The patient's most recent medication refill was arranged in February, and she currently reports no issues with leg cramps, aside from those related to exercise. In December 2023, the patient underwent a colonoscopy that revealed tubular adenomas. Two polyps were removed during the procedure; the patient was advised to follow up with gastroenterology in three years, given the benign nature but potential for change of these polyps. Past mammography from January 2024 was negative, indicating up-to-date screenings. The patient reports experiencing perimenopausal symptoms, including irregular periods and hot flashes, with a period cessation for six months followed by recurrence. These symptoms were discussed but have been recently noted to re-escalate. [facility] Medical History (Updated 06/16/24 @ 17:30 by Jamel Perez MD) Tubular adenoma of colon Sacral fracture Asthma Hepatitis B Vitamin D deficiency Obesity (BMI 30-39.9) Hypertriglyceridemia Surgical History (Updated 06/16/24 @ 17:29 by Jamel Perez MD) Hx of colonoscopy Hx of wisdom tooth extraction Family History (Updated 06/16/24 @ 17:27 by EMMY Garcia) Father ALS (amyotrophic lateral sclerosis) Alcohol abuse Mother No problems noted. Maternal Grandmother Breast cancer Maternal Grandfather S/P CABG x 1 Paternal Grandmother Bladder cancer Maternal Aunt Skin cancer Sister No problems noted. Sister No problems noted. Other Colon cancer Social History Housing: House Are you a primary daycare worker to a significant other at home: No Do you presently have visiting nurse or other home services: No Alcohol intake: current Comment: 2 days weekend-2-3 drinks Patient Tobacco Use Status: Former Tobacco user Tobacco use type: Cigarette Years Smoked: quit 2011 e-Cigarette/Vaping Use: Never Used Second Hand Smoke Exposure: No service: No Current occupational status: employed Current occupational exposures/hazards: No Cognitive needs: No Hearing needs: No Vision needs: No Questionnaire PHQ-9 Over the last 2 weeks, how often have you been bothered by any of the following problems? 1. Little interest or pleasure in doing things: not at all 2. Feeling down, depressed, or hopeless: not at all 3. Trouble falling or staying asleep, or sleeping too much: not at all 4. Feeling tired or having little energy: not at all 5. Poor appetite or overeating: not at all 6. Feeling bad about yourself - or that you are a failure or have let yourself or your family down: not at all 7. Trouble concentrating on things, such as reading the newspaper or watching television: not at all 8. Moving or speaking so slowly that other people could have noticed. Or the opposite - being so fidgety or restless that you have been moving around a lot more than usual: not at all 9. Thoughts that you would be better off or of hurting yourself in some way: not at all Total score: 0 Depression Screening Interpretation: Negative Depression Screening Done: Yes Source: Developed by Drs. Ralph Gonsalves, Jenna Samuel, Jb Alex and colleagues, with an educational elbert from [employer] Thrive Questionnaire Date Thrive assessed: 06/16/24 I am a: Patient What is your living situation today?: I have a steady place to live Within the past 12 months, did the food you bought not last and you didn't have the money to get more?: Never true Within the past 12 months, did you worry whether your food would run out before you got money to buy more?: Never true Do you have trouble paying for medicines?: No Do you have trouble getting transportation to medical appointments?: No Do you have trouble paying your heating and electricity bill?: No Do you have trouble taking care of your child, family member or friend?: No Do you have trouble with day-to-day activities such as bathing, preparing meals, shopping, managing finances, etc.?: No Are you currently unemployed and looking for a job?: No Are you interested in more education?: No Please select the resources that you would like help with: None Currently or been in a relationship where the following occur: No concerns reported THRIVE Score: 0 AUDIT C Alcohol Use Questionnaire (AUDIT-C) 1. How often do you have a drink containing alcohol?: 2-3 times a week 2. How many drinks containing alcohol do you have on a typical day when you are drinking?: 1 or 2 3. How often do you have six or more drinks on one occasion?: Less than monthly Total Score: 4 VINOD-7 AMB Questionnaire VINOD-7 Date VINOD - 7 assessed: 06/16/24 Feeling nervous, anxious, or on edge: 0 = Not at all Not being able to stop or control worryin = Not at all Worrying too much about different things: 0 = Not at all Trouble relaxin = Not at all Being so restless that it is hard to sit still: 0 = Not at all Becoming easily annoyed or irritable: 0 = Not at all Feeling afraid as if something awful might happen: 0 = Not at all Total VINOD-7 score (0-4 normal; 5-9 mild; 10-14 moderate; 15-21 severe): 0 Source: Developed by Drs. Ralph Gonsalves, Jenna Samuel, Jb Alex and colleagues, with an educational elbert from [employer]. Physical exam (Primary Care) Vital Signs: Last Vital Signs Pulse 76 06/16/24 17:22 BP 136/80 06/16/24 17:22 Pulse Ox 97 06/16/24 17:22 Oxygen Delivery Method Room Air 06/16/24 17:22 BMI result Body Mass Index 27.8 Tobacco/Smoking Status: Tobacco use Status Tobacco use date assessed 12/17/23 12/17/23 10:15 Patient Tobacco Use Status Former Tobacco user 01/04/24 10:23 Tobacco use type Cigarette 12/17/23 10:36 e-Cigarette/Vaping Use Never Used 12/17/23 10:36 Depression Screening Interpretation: Negative Thrive Assessment: Date of Thrive Assessment Date Thrive assessed 12/17/23 12/17/23 10:15 Currently or been in a relationship where the following occur: No concerns reported Const General: alert; No acute distress Eyes Conjunctivae: conjunctivae normal Resp Auscultation: clear to auscultation bilaterally Cardio Rate: regular rate Rhythm: regular rhythm GI Inspection: Yes normal to inspection Extrem General: Yes normal to inspection and No edema Coding Level of Care Code Est Pt Level 4 (87855) Diagnoses Hypertension I10 Tubular adenoma of colon D12.6 Hypertriglyceridemia E78.1 Overweight (BMI 25.0-29.9) E66.3 Assessment & Plan Assessment & Plan (1) Hypertension: Code(s): I10 - Essential (primary) hypertension Category: Medical Plan: Continue with blood pressure medication. Decrease salt intake and exercise (2) Tubular adenoma of colon: Comment: 12/2023 3 years Code(s): D12.6 - Benign neoplasm of colon, unspecified Category: Medical Plan: Patient was advised to follow-up in 3 years (3) Hypertriglyceridemia: Code(s): E78.1 - Pure hyperglyceridemia Category: Medical Plan: Avoid fried foods, chicken skin, eggs, butter margarine, pastries and meat. Be it pork or beef they have a lot of cholesterol patient is reminded about the blood work (4) Overweight (BMI 25.0-29.9): Code(s): E66.3 - Overweight Category: Medical Plan: Diet and exercise Plan - Essential Hypertension: Continue with current antihypertensive regimen. Monitor blood pressure regularly at home. Reassess medication adherence and refills as necessary. - Hypercholesterolemia: Reinforce the importance of diet and exercise in management. Discussed the need for routine blood work to monitor lipid levels in the next follow-up. - Tubular Adenoma: Patient has been advised to adhere to a three-year follow-up colonoscopy schedule as per gastroenterology recommendation, given the previous findings and polypectomy. - Perimenopausal Symptoms: Encourage monitoring of symptoms and consider discussing hormonal therapy options in future visits if symptoms worsen or affect quality of life. - Preventive Care: Advised the patient on the importance of receiving the flu vaccine and other seasonal vaccines such as COVID-19 and RSV as available. Reinforced good hygiene practices and avoidance of crowded places if possible during peak flu season. Medications: Refilled hydrochlorothiazide 12.5 mg PO DAILY 90 tabs 2RF I10 - Essential (primary) hypertension
[2024-06-16 17:22] VITALS: BP 136/80; PULSE 76; O2SAT 97; BMI 27.8
== END 2024-06-16 17:40 | disposition home or self-care (01) ==
PROVIDERS: PCP Internal Medicine; Visit Provider Internal Medicine
DX: I10 Essential (primary) hypertension (principal); D12.6 Benign neoplasm of colon, unspecified; E78.1 Pure hyperglyceridemia; E66.3 Overweight

== ENCOUNTER → 2024-06-16 17:12 | Outpatient (BNVA) | payer BC, SELFPAY | PROVIDERS: PCP Internal Medicine; Visit Provider Internal Medicine ==

== ENCOUNTER 2024-09-05 15:47 | Outpatient (AMB) | payer BC, SELFPAY ==
--- NOTE | 2024-09-05 15:45 | MHC.PC.OV ---
Intake Visit Reasons: Referral to Dermatology (video) Nick Setter Required: No Accompanied by: Self / Same As Patient Allergies No Known Allergies Allergy (Verified 09/05/24 15:46) Tobacco use date assessed: 06/16/24 Dental Screening Dental Screen Date: 06/16/24 HPI Referral to Dermatology (video) HPI Details L lutheran elevated PFSH Medical History (Updated 09/05/24 @ 16:19 by Jamel Perez MD) Tubular adenoma of colon Sacral fracture Asthma Hepatitis B Vitamin D deficiency Obesity (BMI 30-39.9) Hypertriglyceridemia Surgical History Hx of colonoscopy Hx of wisdom tooth extraction Family History Father ALS (amyotrophic lateral sclerosis) Alcohol abuse Mother No problems noted. Maternal Grandmother Breast cancer Maternal Grandfather S/P CABG x 1 Paternal Grandmother Bladder cancer Maternal Aunt Skin cancer Sister No problems noted. Sister No problems noted. Other Colon cancer Social History Housing: House Are you a primary urgent care technician to a significant other at home: No Do you presently have visiting nurse or other home services: No Alcohol intake: current Comment: 2 days weekend-2-3 drinks Patient Tobacco Use Status: Former Tobacco user Tobacco use type: Cigarette Years Smoked: quit 2011 e-Cigarette/Vaping Use: Never Used Second Hand Smoke Exposure: No service: No Current occupational status: employed Current occupational exposures/hazards: No Cognitive needs: No Hearing needs: No Vision needs: No Questionnaire Thrive Questionnaire Date Thrive assessed: 06/16/24 VINOD-7 AMB Questionnaire VINOD-7 Date VINOD - 7 assessed: 06/16/24 Source: Developed by Drs. Ralph Gonsalves, Jenna Samuel, Jb Alex and colleagues, with an educational elbert from [employer]. Physical exam (Primary Care) Tobacco/Smoking Status: Tobacco use Status Tobacco use date assessed 06/16/24 09/05/24 15:46 Patient Tobacco Use Status Former Tobacco user 09/05/24 15:46 Tobacco use type Cigarette 09/05/24 15:46 e-Cigarette/Vaping Use Never Used 09/05/24 15:46 Thrive Assessment: Date of Thrive Assessment Date Thrive assessed 06/16/24 09/05/24 15:46 [facility] Face images: 1. 1.5 cm elevated fungating growth Telehealth Telehealth Telehealth Platform: [employer] Location of provider rendering services: practice address Location of patient: address on file Patient Identification confirmed using: Name, : Yes Telehealth method: video Patient verbally consented to treatment: Yes Patient verbally consented to billing insurance company: Yes Patient informed of any privacy concerns related to visit: Yes Minutes spent on Phone/Video with Pt.: 20 Coding Level of Care Code Tele Est Pt Level 4 (19240) Diagnoses Hypertension I10 Hypertriglyceridemia E78.1 Atypical nevi D22.9 Perimenopausal N95.1 Assessment & Plan Assessment & Plan (1) Hypertension: Code(s): I10 - Essential (primary) hypertension Category: Medical Plan: Continue with blood pressure medication. Decrease salt intake and exercise on hydrochlorothiazide 12.5 mg once a day (2) Hypertriglyceridemia: Code(s): E78.1 - Pure hyperglyceridemia Category: Medical Plan: Avoid fried foods, chicken skin, eggs, butter margarine, pastries and meat. Be it pork or beef they have a lot of cholesterol patient was recommended to have blood work done. (3) Atypical nevi: Comment: L side of scalp area Code(s): D22.9 - Melanocytic nevi, unspecified Category: Medical (4) Perimenopausal: Code(s): N95.1 - Menopausal and female climacteric states Category: Medical Plan History of Present Illness The patient is a 49-year-old female presenting with concerns about a newly enlarging skin lesion on her scalp. The growth, located above the left lutheran, has increased in size over the past few weeks to approximately 1 to 2 cm, with a dry texture and farris color. The lesion had previously been small and unnoticed under the hairline but has now become more prominent. The patient?s history includes essential hypertension managed with hydrochlorothiazide, hypertriglyceridemia, and a past tubular adenoma. She has not seen a supervisor labor gang in recent years but expressed concern about the sudden change in the lesion?s size and appearance. Review of Systems - Dermatological: Reports new enlarging lesion on the left scalp, dry, circular, farris in color; Denies bleeding. - Cardiovascular: Denies acute chest pain or palpitations. - Neurological: Denies headaches or neurological deficits. - Endocrine: Denies hot flashes or menopausal symptoms at present. - General: Denies unintentional weight loss. Plan 1. 5 mg daily. The patient was reminded to complete blood work for hypertriglyceridemia, scheduled for the following week. Hormonal testing for menopause was discussed and deemed unnecessary at this time due to the lack of symptoms. It is important to follow up with the dermatology consult and review results to determine further steps, including potential treatment options for the skin lesion.: Patient was informed and verbally consented to the use of an ambient scribe for clinic note documentation during this visit. Discussion Notes During the telehealth consultation, I discussed the sudden increase in size of the scalp lesion and the importance of dermatological evaluation. We decided to initiate an urgent referral to dermatology to rule out any concerning pathology given the changes described. The patient understood the proposed plan for handling the hypertrophic lesion and acknowledged the absence of immediate menopausal symptoms, thus did not require hormonal testing. Additionally, I reiterated the need for upcoming blood work for hypertriglyceridemia and the role it plays in managing cardiovascular risk. Future therapeutic options or interventions will be considered following dermatological assessment. Patient Instructions - Follow up with dermatology regarding the new scalp lesion. - Continue taking hydrochlorothiazide 12.5 mg daily as prescribed. - Complete the scheduled blood work next week for hypertriglyceridemia. - Monitor for any new symptoms or changes in the lesion, and report if any arise. - Expect follow-up communications regarding dermatology appointments in the coming weeks. - No immediate hormonal testing is needed. Monitor any symptoms suggestive of menopause. Orders: Referrals Dermatology Referral D22.9 - Melanocytic nevi, unspecified
== END 2024-09-05 17:08 | disposition home or self-care (01) ==
LOC: HO.HMCH 15:47
PROVIDERS: PCP Internal Medicine; Visit Provider Internal Medicine
DX: I10 Essential (primary) hypertension (principal); E78.1 Pure hyperglyceridemia; D22.9 Melanocytic nevi, unspecified; N95.1 Menopausal and female climacteric states

== ENCOUNTER → 2024-09-05 15:47 | Outpatient (BNVA) | payer BC, SELFPAY | PROVIDERS: PCP Internal Medicine; Visit Provider Internal Medicine ==

== ENCOUNTER 2024-12-31 12:24 | Outpatient (AMB) | payer BC, SELFPAY ==
[2024-12-31 12:32] VITALS: BP 128/72; PULSE 78; O2SAT 98; BMI 27.8
--- NOTE | 2024-12-31 12:32 | MHC.PC.OV ---
Vital Signs 12/31/24 12:32 Height 5 ft 6 in Weight 172 lb BMI 27.8 BP 128/72 Blood Pressure Location Lt brachial Position Sitting Pulse 78 Pulse Source Pulse Oximeter Pulse Oximetry (%) 98 Oxygen Delivery Method Room Air Intake Visit Reasons: annual exam Allergies No Known Allergies Allergy (Verified 12/31/24 12:32) Medication List - Last Reconciled 12/31/24 by Jamel Perez MD [AG1 powder PO] hydrochlorothiazide 12.5 mg PO DAILY multivitamin 1 tab PO DAILY Tobacco use date assessed: 06/16/24 Dental Screening Dental Screen Date: 12/31/24 Did you have a dental visit in the last 12 months?: No Did you have a dental problem in the last 6 months where you did not have access to dental care?: No Was dental information given to patient?: Patient has dentist [facility] Medical History (Updated 12/31/24 @ 12:40 by Jamel Perez MD) Obesity (BMI 30-39.9) Annual physical exam Tubular adenoma of colon Sacral fracture Asthma Hepatitis B Vitamin D deficiency Hypertriglyceridemia Surgical History Hx of colonoscopy Hx of wisdom tooth extraction Family History (Updated 12/31/24 @ 12:46 by Jamel Perez MD) Father ALS (amyotrophic lateral sclerosis) Alcohol abuse Mother No problems noted. Maternal Grandmother Breast cancer Maternal Grandfather S/P CABG x 1 Paternal Grandmother Bladder cancer Maternal Aunt Skin cancer Sister No problems noted. Sister No problems noted. Social History (Updated 12/31/24 @ 12:47 by Jamel Perez MD) Housing: House Are you a primary patient care manager to a significant other at home: No Do you presently have visiting nurse or other home services: No Alcohol intake: current Comment: 2 days [id number] Patient Tobacco Use Status: Former Tobacco user Tobacco use type: Cigarette Years Smoked: quit 2011 e-Cigarette/Vaping Use: Never Used Second Hand Smoke Exposure: No service: No Current occupational status: employed Current occupational exposures/hazards: No Cognitive needs: No Hearing needs: No Vision needs: No Questionnaire PHQ-9 Over the last 2 weeks, how often have you been bothered by any of the following problems? 1. Little interest or pleasure in doing things: not at all 2. Feeling down, depressed, or hopeless: not at all 3. Trouble falling or staying asleep, or sleeping too much: not at all 4. Feeling tired or having little energy: not at all 5. Poor appetite or overeating: not at all 6. Feeling bad about yourself - or that you are a failure or have let yourself or your family down: not at all 7. Trouble concentrating on things, such as reading the newspaper or watching television: not at all 8. Moving or speaking so slowly that other people could have noticed. Or the opposite - being so fidgety or restless that you have been moving around a lot more than usual: not at all 9. Thoughts that you would be better off or of hurting yourself in some way: not at all Total score: 0 Depression Screening Interpretation: Negative Depression Screening Done: Yes Source: Developed by Drs. Ralph Gonsalves, Jenna Samuel, Jb Alex and colleagues, with an educational elbert from [employer]. Thrive Questionnaire Date Thrive assessed: 12/29/24 I am a: Patient What is your living situation today?: I have a steady place to live Within the past 12 months, did the food you bought not last and you didn't have the money to get more?: Never true Within the past 12 months, did you worry whether your food would run out before you got money to buy more?: Never true Do you have trouble paying for medicines?: No Do you have trouble getting transportation to medical appointments?: No Do you have trouble paying your heating and electricity bill?: No Do you have trouble taking care of your child, family member or friend?: No Do you have trouble with day-to-day activities such as bathing, preparing meals, shopping, managing finances, etc.?: No Are you currently unemployed and looking for a job?: No Are you interested in more education?: No Please select the resources that you would like help with: None Currently or been in a relationship where the following occur: No concerns reported THRIVE Score: 0 AUDIT C Alcohol Use Questionnaire (AUDIT-C) 1. How often do you have a drink containing alcohol?: 2-4 times a month 2. How many drinks containing alcohol do you have on a typical day when you are drinking?: 1 or 2 3. How often do you have six or more drinks on one occasion?: Never Total Score: 2 VINOD-7 AMB Questionnaire VINOD-7 Date VINOD - 7 assessed: 12/31/24 Feeling nervous, anxious, or on edge: 0 = Not at all Not being able to stop or control worryin = Not at all Worrying too much about different things: 0 = Not at all Trouble relaxin = Not at all Being so restless that it is hard to sit still: 0 = Not at all Becoming easily annoyed or irritable: 0 = Not at all Feeling afraid as if something awful might happen: 0 = Not at all Total VINOD-7 score (0-4 normal; 5-9 mild; 10-14 moderate; 15-21 severe): 0 Source: Developed by Drs. Ralph Gonsalves, Jenna Samuel, Jb Alex and colleagues, with an educational elbert from [employer]. Review of Systems Const Denies poor appetite and Denies weakness Eyes Denies no additional complaints ENT Reports Normal hearing present, Denies dizziness, Denies nasal congestion, Denies tinnitus and Denies sore throat Card Denies chest pain, Denies syncope, Denies rapid heart rate and Denies dyspnea Resp Denies cough and Denies dyspnea GI Denies change in stool character, Reports constipation, Denies diarrhea, Denies nausea and Denies vomiting Denies urinary frequency, Denies difficulty voiding and Denies dysuria Neuro Reports Normal hearing present, Denies confusion, Denies dizziness, Denies syncope and Denies weakness Psych Denies confusion Physical exam (Primary Care) Vital Signs: Last Vital Signs Pulse 78 12/31/24 12:32 BP 128/72 12/31/24 12:32 Pulse Ox 98 12/31/24 12:32 Oxygen Delivery Method Room Air 12/31/24 12:32 BMI result Body Mass Index 27.8 Tobacco/Smoking Status: Tobacco use Status Tobacco use date assessed 06/16/24 12/31/24 12:36 Patient Tobacco Use Status Former Tobacco user 12/31/24 12:47 Tobacco use type Cigarette 12/31/24 12:47 e-Cigarette/Vaping Use Never Used 12/31/24 12:47 PHQ-9: PHQ-9 Score PHQ-9: Total score 0 12/31/24 15:19 Depression Screening Interpretation: Negative Thrive Assessment: Date of Thrive Assessment Date Thrive assessed 12/29/24 12/31/24 12:36 Currently or been in a relationship where the following occur: No concerns reported Const General: No confusion Orientation/consciousness: No confusion HENMT Head: Yes normocephalic Ears: external ears normal and TM's normal bilaterally Face and sinus: Yes normal facial exam Mouth: moist mucous membranes Throat: Yes tonsils normal Eyes Conjunctivae: conjunctivae normal Pupils: Equal, round and reactive pupils present and Pupil accommodation reflex normal Direct Ophthalmoscopy: normal light reflex Neck Neck: No lymphadenopathy Thyroid: Thyroid normal Chest Chest palpation & inspection: normal inspection of the chest Resp Effort & Inspection: normal respiratory effort and no audible wheezes Auscultation: clear to auscultation bilaterally, no crackles, no wheezes and lung sounds not diminished Cardio Rate: regular rate Rhythm: regular rhythm Peripheral pulses: radial pulses present and dorsalis pedis present GI Palpation (GI): no masses Auscultation: normal bowel sounds and normoactive bowel sounds Rectal Exam - Female: deferred Skin General skin exam: no rashes or lesions noted Rashes: no rashes Neuro General: No confusion Cranial nerves: Yes Equal, round and reactive pupils present and Yes Normal hearing present Cognition (Neuro): normal cognition Gait exam (Neuro): Normal gait present Motor exam (neuro): 5/5 motor strength present throughout Deep tendon reflexes (DTR's): Right brachioradialis reflex intensity grade: 2+, Left brachioradialis reflex intensity grade: 2+, Right patellar reflex intensity grade: 2+ and Left patellar reflex intensity grade: 2+ Extrem General: No edema Coding Level of Care Code Est Pt Prev Care 40-64y(42902) Diagnoses Annual physical exam Z00.00 Atypical nevi D22.9 Tubular adenoma of colon D12.6 Overweight (BMI 25.0-29.9) E66.3 Hypertriglyceridemia E78.1 Hypertension I10 Assessment & Plan Assessment & Plan (1) Annual physical exam: Code(s): Z00.00 - Encounter for general adult medical examination without abnormal findings Category: Medical Plan: Patient is advised to eat healthy, keep well hydrated, keep active and have adequate sleep. (2) Atypical nevi: Comment: L side of scalp area Code(s): D22.9 - Melanocytic nevi, unspecified Category: Medical Plan: Patient has been referred to dermatology (3) Tubular adenoma of colon: Comment: 12/2023 3 years Code(s): D12.6 - Benign neoplasm of colon, unspecified Category: Medical Plan: Patient's recall is 2026 (4) Overweight (BMI 25.0-29.9): Code(s): E66.3 - Overweight Category: Medical Plan: Diet and exercise (5) Hypertriglyceridemia: Code(s): E78.1 - Pure hyperglyceridemia Category: Medical Plan: Avoid fried foods, chicken skin, eggs, butter margarine, pastries and meat. Be it pork or beef they have a lot of cholesterol patient is advised to get blood work done (6) Hypertension: Code(s): I10 - Essential (primary) hypertension Category: Medical Plan: Continue with blood pressure medication. Decrease salt intake and exercise on hydrochlorothiazide 12.5 mg once a day Plan History of Present Illness The patient is a 49-year-old female presenting for an annual physical examination. She has a history of hypercholesterolemia and hypertension, managed with lifestyle changes and hydrochlorothiazide 12.5 mg daily. Blood work is pending due to scheduling conflicts. The patient has a history of tubular adenoma of the colon, with a colonoscopy performed in 2023 and a follow-up scheduled for 2026. Her mammogram is current as of January 2024. She denies new diagnoses or surgeries and reports no medication allergies. The patient uses AG1, a probiotic and prebiotic supplement, and occasionally takes a multivitamin. Social history includes occasional alcohol use, marijuana for sleep, and no tobacco or recreational drug use. She engages in regular exercise and follows a healthy diet. Health Maintenance - Colonoscopy follow-up scheduled for 2026 - Mammogram up to date as of January 2024 - Blood work pending, including B12 levels - Tetanus shot is up to date - Flu shot recommended for January - COVID-19 vaccination recommended Social History - Alcohol: Consumes alcohol once or twice a week, one or two drinks per occasion - Substance Use: Smokes marijuana occasionally for sleep, no tobacco or recreational drug use - Exercise: Engages in regular physical activity - Diet: Follows a healthy diet Review of Systems - General: Denies fever, dizziness, nausea, or vomiting - Cardiovascular: Denies chest pain or palpitations - Respiratory: Denies dyspnea or cough - Gastrointestinal: Denies constipation or diarrhea, reports normal bowel movements - Genitourinary: Denies dysuria, reports nocturia once per night - Neurological: Denies headaches or syncope Physical Exam General: Cooperative, healthy appearing, comfortable, no acute distress and well developed Orientation: Patient oriented x3 Limitations: No limitations Head: Normal to inspection Ears: Hearing grossly normal bilaterally Nose: Normal external nose present Face and sinus: Normal facial exam Eyes: Appearance normal, both eyes and all related structures Neck: Normal visual inspection and Yes full ROM Respiratory: Normal respiratory effort and able to speak in complete sentences. Clear to auscultation bilaterally Cardiovascular: Regular rate and rhythm. Normal S1 and S2 GI: Normal to inspection. Soft to palpation and nontender Skin: No rashes or lesions noted Neuro: Patient oriented x3 Extremities: Normal to inspection Results Plan Patient was informed and verbally consented to the use of an ambient scribe for clinic note documentation during this visit. 1. Hypercholesterolemia The patient is advised to undergo blood work to assess cholesterol levels and adjust management accordingly. 2. Hypertension The patient is currently on hydrochlorothiazide 12.5 mg once daily, with blood pressure reported as stable. 3. Tubular Adenoma Of The Colon The patient is scheduled for a follow-up colonoscopy in 2026 to monitor for recurrence or new adenomas. Discussion Notes During the visit, I discussed the importance of completing the pending blood work, including cholesterol and B12 levels, to guide further management. We reviewed the patient's current medication regimen, including hydrochlorothiazide for hypertension, and confirmed no new allergies or adverse reactions. I emphasized the need for regular follow-ups, including the scheduled colonoscopy in 2026 and maintaining up-to-date mammograms. Patient Instructions - Complete blood work as soon as possible, including cholesterol and B12 levels. - Continue taking hydrochlorothiazide 12.5 mg daily as prescribed. - Schedule and attend follow-up colonoscopy in 2026. - Maintain a healthy diet and regular exercise routine. - Limit alcohol consumption and consider switching to edibles if using marijuana for sleep.
== END 2024-12-31 13:00 | disposition home or self-care (01) ==
LOC: HO.HMCH 12:24
PROVIDERS: PCP Internal Medicine; Visit Provider Internal Medicine
DX: Z00.00 Encounter for general adult medical examination without abnormal findings (principal); D22.9 Melanocytic nevi, unspecified; D12.6 Benign neoplasm of colon, unspecified; E66.3 Overweight; E78.1 Pure hyperglyceridemia; I10 Essential (primary) hypertension

== ENCOUNTER → 2025-02-06 08:45 | Outpatient (BNV) | payer BC, SELFPAY | PROVIDERS: PCP Internal Medicine; Visit Provider Radiology Body Imaging | DX: Z12.31 Encounter for screening mammogram for malignant neoplasm of breast (principal) | CPT/HCPCS: 77063; 77067 ==

== ENCOUNTER 2025-02-06 08:48 | Outpatient (REF) | payer BC, SELFPAY | END 2025-02-06 08:49 | disposition home or self-care (01) | LOC: HO.MAMMO 08:48 | PROVIDERS: PCP Internal Medicine; Visit Provider Internal Medicine | DX: Z12.31 Encounter for screening mammogram for malignant neoplasm of breast (principal) | CPT/HCPCS: 77063; 77067 ==

== ENCOUNTER 2025-02-09 08:15 | Outpatient (REF) | payer BC, SELFPAY ==
[2025-02-09 08:31] LABS: MANUAL DIFF FLAG NO
[2025-02-09 08:46] LABS: Hematocrit 40.8 % (37.0-47.0); Hemoglobin 13.4 g/dl (12.0-16.0); Imm Gran Abs Auto 0.01 X10*3/uL (0.00-0.03); Imm Gran Pct Auto 0.2 % (0.0-0.4); Lymphocytes Absolute Auto 2.2 X10*3/uL (1.2-4.9); Mean Corpuscular HGB Conc 32.8 g/dl (31.0-35.0); Mean Corpuscular Hemoglobin 29.5 pg (27.0-33.0); Mean Corpuscular Volume 89.9 fL (80.0-98.0); NRBC Abs Auto 0.000 X10*3/uL (0.0-0.012); NRBC Pct Auto 0.0 /100WBC (0.0-0.2); Platelet Count 212 X10*3/uL (160-400); Red Blood Count 4.54 X10*6/uL (4.20-5.50); White Blood Count 6.6 X10*3/uL (4.8-10.8)
[2025-02-09 09:20] LABS: Alanine Aminotransferase 18 U/L (0-31); Albumin Level 4.5 g/dL (3.5-5.0); Alkaline Phosphatase 47 U/L (39-117); Anion Gap 11 (12-20); Aspartate Amino Transferase 24 U/L (5-31); Blood Urea Nitrogen 12 mg/dL (9-16); Calcium 9.2 mg/dL (8.4-10.2); Carbon Dioxide 28 mmol/L (22-29); Chloride 106 mmol/L (96-108); Cholesterol 194 mg/dL (<200); Estimated Glomerular Filt Rate > 60; HDL Cholesterol 87 mg/dL (>40); Potassium 4.3 mmol/L (3.3-5.1); Sodium 141 mmol/L (135-145); Total Protein 7.0 g/dL (6.5-8.0); Triglycerides 71 mg/dL (<150)
[2025-02-09 09:40] LABS: Free T4 (Free Thyroxine) 0.93 ng/dL (0.71-1.85); Thyroid Stimulating Hormone 1.47 uIU/mL (0.32-4.0)
[2025-02-09 09:47] LABS: Folate 12.6 ng/mL (> or = 4.0); Vitamin B12 557 pg/mL (200-900)
== END 2025-02-09 08:16 | disposition home or self-care (01) ==
LOC: HO.LAB 08:15
PROVIDERS: PCP Internal Medicine; Visit Provider Internal Medicine
DX: E78.1 Pure hyperglyceridemia (principal); E78.00 Pure hypercholesterolemia, unspecified
CPT/HCPCS: 36415; 80053; 80061; 82306; 82607; 82746; 84439; 84443; 85025